=== PATIENT | male | born 1990 | race Caucasian/White ===

== ENCOUNTER 2025-06-17 18:51 | Inpatient (IN) | payer OTHER ==
[~2025-06-17] VITALS: Ht 172.7 cm; Wt 72.7 kg
[2025-06-17 20:38] LABS: PLATELET COUNT (AUTO) 482 K/uL (150-450); RED BLOOD CELL COUNT(AUTO) 4.85 MIL/uL (4.50-5.90); RED CELL DISTRIBUTION WIDTH 13.6 % (11.5-14.5); WHITE BLOOD COUNT (AUTO) 9.6 K/uL (4.5-11.0)
[2025-06-17 20:42] LABS: CALCIUM, TOTAL 9.1 mg/dL (8.8-10.5); CREATININE 0.64 mg/dL (0.60-1.30); GLOMERULAR FILTR. RATE CALC > 60 mL/min (>60); GLUCOSE,RANDOM 99 mg/dL (70-110); SODIUM SERUM 141 mmol/L (136-145); UREA NITROGEN, BLOOD 13 mg/dL (7-18)
[2025-06-17] MEDS: ACETAMINOPHEN 500 MG TABLET PO ONE (21:10)
[2025-06-17] MEDS: IBUPROFEN 400 MG TABLET PO ONE (21:10)
[2025-06-17 21:22] LABS: COVID AG,FIA SOURCE NASAL SWAB
[2025-06-17 21:46] LABS: SARS-COV2 (COVID) ANTIGEN,FIA Negative (Negative)
[2025-06-17] MEDS ORDERED: ACETAMINOPHEN 325 MG TABLET PO PRN (22:15)
[2025-06-17] MEDS ORDERED: ONDANSETRON HCL 4 MG/2 ML VIAL IVP PRN (22:15)
[2025-06-17 23:31] VITALS: BP 117/92; PULSE 67; RESP 18; TEMP 98.4; O2SAT 100
[2025-06-17] MEDS: HEPARIN SODIUM,PORCINE 5,000 UNITS/ML VIAL SQ SCH (23:53)
[2025-06-18] MEDS ORDERED: INFLUENZA VIRUS VACCINE TVS (6MO+) 2025-26/PF 45 MCG/0.5 ML SYRINGE IM. ONE (01:00)
[2025-06-18 06:26] VITALS: BP 125/88; PULSE 68; RESP 18; TEMP 97.9; O2SAT 98
[2025-06-18 06:28] LABS: PLATELET COUNT (AUTO) 421 K/uL (150-450); RED BLOOD CELL COUNT(AUTO) 4.38 MIL/uL (4.50-5.90); RED CELL DISTRIBUTION WIDTH 13.7 % (11.5-14.5); WHITE BLOOD COUNT (AUTO) 8.6 K/uL (4.5-11.0)
[2025-06-18 06:45] LABS: CALCIUM, TOTAL 8.6 mg/dL (8.8-10.5); CREATININE 0.60 mg/dL (0.60-1.30); GLOMERULAR FILTR. RATE CALC > 60 mL/min (>60); GLUCOSE,RANDOM 90 mg/dL (70-110); SODIUM SERUM 141 mmol/L (136-145); UREA NITROGEN, BLOOD 14 mg/dL (7-18)
[2025-06-18] MEDS ORDERED: MELATONIN 5 MG TABLET PO PRN (06:45)
[2025-06-18 07:50] VITALS: BP 119/85; PULSE 68; RESP 18; TEMP 97.9; O2SAT 100
[2025-06-18] MEDS: DOCUSATE SODIUM 100 MG CAPSULE PO SCH (09:09)
[2025-06-18 15:49] VITALS: BP 112/80; PULSE 76; RESP 18; TEMP 98.1; O2SAT 100
[2025-06-18 19:35] VITALS: BP 122/79; PULSE 93; RESP 18; TEMP 97.9; O2SAT 96
[2025-06-19 05:02] VITALS: BP 108/79; PULSE 72; RESP 18; TEMP 97.9; O2SAT 100
[2025-06-19 08:59] VITALS: BP 112/82; PULSE 71; RESP 20; TEMP 98.2; O2SAT 98
[2025-06-19 19:50] VITALS: BP 135/94; PULSE 74; RESP 18; TEMP 97.5; O2SAT 97
[2025-06-20 04:42] VITALS: BP 115/81; PULSE 72; RESP 18; TEMP 98.1; O2SAT 96
[2025-06-20 08:33] VITALS: BP 122/84; PULSE 74; RESP 18; TEMP 98; O2SAT 97
[2025-06-20 20:55] VITALS: BP 133/88; PULSE 87; RESP 17; TEMP 97.5; O2SAT 97
[2025-06-21 04:58] VITALS: BP 106/84; PULSE 75; RESP 16; TEMP 97.3; O2SAT 100
[2025-06-21 08:00] VITALS: BP 116/84; PULSE 73; RESP 19; TEMP 97.7; O2SAT 100
[2025-06-21] MEDS ORDERED: RISP-32 PO (14:42)
== END 2025-06-21 21:10 | DRG 885 ==
LOC: EMS 18:54 → EDH 22:15 → 6S 23:24
PROVIDERS: ADMIT Internal Medicine; ATTEND Internal Medicine
PROC: GZ58ZZZ Individual Psychotherapy, Cognitive-Behavioral (ICD-10-PCS; principal; 2025-06-18)
PROC: GZ56ZZZ Individual Psychotherapy, Supportive (ICD-10-PCS; 2025-06-18)
PROC: GZ52ZZZ Individual Psychotherapy, Cognitive (ICD-10-PCS; 2025-06-19)
DX: F33.2 Major depressive disorder, recurrent severe without psychotic features (principal); R45.851 Suicidal ideations; Z20.822 Contact with and (suspected) exposure to COVID-19
CPT/HCPCS: 80048; 83735; 85025; 99285; G0480; J1644